=== PATIENT | male | born 1990 | race American Indian/Alaskan Native ===

== ENCOUNTER 2016-12-17 01:15 | Emergency (ER) | payer OTHER ==
[2016-12-17 01:16] VITALS: BMI 26.4
[2016-12-17 01:25] VITALS: BP 125/80; PULSE 85; RESP 16; TEMP 97.8; O2SAT 98
--- NOTE | 2016-12-17 06:20 | C.PDOC ---
History Of Present Illness 26 year old male presents to the ED requesting STD testing and complaint of small abrasion to to penis noted three days ago. He notes one female partner and using protection "most of the time." Patient denies any discharge from wound of urethra and any other complaints at this time. Chief Complaint (Nursing): Male Genitourinary History Per: Patient History/Exam Limitations: no limitations Onset/Duration Of Symptoms: Days Current Symptoms Are (Timing): Still Present Associated Symptoms: denies: Fever, Chills, Nausea, Vomiting, Diarrhea Past Medical History Reviewed: Historical Data, Nursing Documentation, Vital Signs Vital Signs: Last Vital Signs Temp 97.8 F 12/17/16 01:23 Pulse 85 12/17/16 01:23 Resp 16 12/17/16 01:23 BP 125/80 12/17/16 01:23 Pulse Ox 98 12/17/16 06:39 Family History: States: Unknown Family Hx - Social History Hx Tobacco Use: No Hx Alcohol Use: Yes Hx Substance Use: No - Immunization History Hx Tetanus Toxoid Vaccination: No Hx Influenza Vaccination: No Hx Pneumococcal Vaccination: No Review Of Systems Constitutional: Negative for: Fever, Chills Respiratory: Negative for: Cough Gastrointestinal: Negative for: Nausea, Vomiting, Abdominal Pain, Diarrhea Genitourinary: Positive for: Other (penile abrasion ). Negative for: Dysuria, Hematuria, Penile Discharge Physical Exam - Physical Exam Appears: Non-toxic, No Acute Distress Skin: Warm, Dry Head: Normacephalic Eye(s): bilateral: PERRL, EOMI Ear(s): Bilateral: Normal Oral Mucosa: Moist Tongue: Normal Appearing Lips: Normal Appearing Throat: Normal, No Erythema Neck: Normal ROM, Supple Chest: Symmetrical, No Deformity Cardiovascular: Rhythm Regular Respiratory: No Accessory Muscle Use, No Rales, No Rhonchi, No Stridor, No Wheezing Gastrointestinal/Abdominal: Soft, No Tenderness, No Distention, No Guarding, No Rebound Male Genital: Other (punctate abrasion to the shaft of the penis ) Extremity: Normal ROM, No Tenderness ED Course And Treatment O2 Sat by Pulse Oximetry: 98 Disposition - Disposition Referrals: [facility] [Outside] [facility] [Outside] Disposition: HOME/ ROUTINE Disposition Time: 02:10 Condition: GOOD Additional Instructions: Thank you for letting us take care of you today. Your provider was Dr. Munguia. You were treated for penile abrasion. The emergency medical care you received today was directed at your acute symptoms. If you were prescribed any medication, please fill it and take as directed. It may take several days for your symptoms to resolve. Return to the Emergency Department if your symptoms worsen, do not improve, or if you have any other problems. Please contact your doctor or call one of the physicians/clinics you have been referred to that are listed on the Patient Visit Information form that is included in your discharge packet. Bring any paperwork you were given at discharge with you along with any medications you are taking to your follow up visit. Our treatment cannot replace ongoing medical care by a primary care provider (PCP) outside of the emergency department. Thank you for allowing the [facility] team to be part of your care today. You had an STI test: It will take 48 hours for the results. Please call after 1 week if you have not heard back. Follow up in the clinic in 4-5 days for outpatient care. Instructions: Safe Sex (ED) - Clinical Impression Clinical Impression: Abrasion of penis - Scribe Statement The provider has reviewed the documentation as recorded by the Scribe Marlen Landaverde All medical record entries made by the Scribe were at my direction and personally dictated by me. I have reviewed the chart and agree that the record accurately reflects my personal performance of the history, physical exam, medical decision making, and the department course for this patient. I have also personally directed, reviewed, and agree with the discharge instructions and disposition.
== END 2016-12-17 02:27 | disposition home or self-care (01) ==
LOC: C.ER 01:15
DX: S30.812A Abrasion of penis, initial encounter (principal); X58.XXXA Exposure to other specified factors, initial encounter

== ENCOUNTER 2016-12-26 21:09 | Emergency (ER) | payer OTHER ==
[2016-12-26 21:09] VITALS: BMI 26.4
[2016-12-26 21:36] VITALS: BP 125/74; PULSE 78; RESP 18; TEMP 97.7; O2SAT 97
--- NOTE | 2016-12-26 22:36 | C.PDOC ---
History Of Present Illness 26 y/o male presents to ED with complaint of burn to left leg for 2 weeks. Patient states he has been using A&D ointment, but states he feels like it may be infected, prompting visit. Patient otherwise denies fever, chills, new weakness, new numbness, or other associated symptoms. Time Seen by Provider: 12/26/16 22:10 Chief Complaint (Nursing): Burn History Per: Patient History/Exam Limitations: no limitations Injury Occurred (Timing): Days Ago: (14) Severity: Mild Associated Symptoms: denies: Headache, Cough Recent travel outside of the [place]: No Past Medical History Reviewed: Historical Data, Nursing Documentation, Vital Signs Vital Signs: Last Vital Signs Temp 97.7 F 12/26/16 21:32 Pulse 78 12/26/16 21:32 Resp 18 12/26/16 21:32 BP 125/74 12/26/16 21:32 Pulse Ox 97 12/26/16 22:38 - Medical History PMH: No Chronic Diseases Family History: States: Unknown Family Hx - Social History Hx Tobacco Use: No Hx Alcohol Use: Yes Hx Substance Use: No - Immunization History Hx Tetanus Toxoid Vaccination: No Hx Influenza Vaccination: No Hx Pneumococcal Vaccination: No Review Of Systems Except As Marked, All Systems Reviewed And Found Negative. Constitutional: Negative for: Fever, Chills Respiratory: Negative for: Cough Gastrointestinal: Negative for: Nausea, Vomiting Skin: Positive for: Other (burn to left lower leg). Negative for: Rash Neurological: Negative for: Weakness, Numbness Physical Exam - Physical Exam Appears: Non-toxic, No Acute Distress Skin: Warm, Dry Head: Atraumatic, Normacephalic Extremity: Normal ROM, No Tenderness, Capillary Refill (< 2 sec. ), No Deformity , No Swelling, Other (Small, 3.0 cm diameter healing wound to left tibial acevedo, with minimal localized erythema. No fluctuance or drainage. ) Pulses: Left Dorsalis Pedis: Normal, Right Dorsalis Pedis: Normal Neurological/Psych: Oriented x3, Normal Speech, Normal Cognition, Normal Motor, Normal Sensation Gait: Steady ED Course And Treatment O2 Sat by Pulse Oximetry: 97 (RA) Pulse Ox Interpretation: Normal Progress Note: On reassessment, patient is resting comfortably, and is in no acute distress. Advised patient to used antibioitc ointment as directed at home. appropriate wound care instructions given. Patient instructed to follow up with clinic/PMD within 1-2 days. Disposition Counseled Patient/Family Regarding: Diagnosis, Need For Followup, Rx Given - Disposition Referrals: Non [facility] Provider, [Primary Care Provider] - Disposition: HOME/ ROUTINE Disposition Time: 22:34 Condition: GOOD Additional Instructions: Apply antibiotic oint to area Follow up with PMD Returm to ER if worse Forms: General Discharge Instructions - Clinical Impression Clinical Impression: Healing wound - PA / [employer] / Resident Statement MD/DO has reviewed & agrees with the documentation as recorded. - Scribe Statement The provider has reviewed the documentation as recorded by the Asa Briscoe Provider Scribe Attestation: All medical record entries made by the Asa were at my direction and personally dictated by me. I have reviewed the chart and agree that the record accurately reflects my personal performance of the history, physical exam, medical decision making, and the department course for this patient. I have also personally directed, reviewed, and agree with the discharge instructions and disposition.
== END 2016-12-26 22:46 | disposition home or self-care (01) ==
LOC: SUPCPDRO 21:09 → C.ER 21:09
DX: S81.802A Unspecified open wound, left lower leg, initial encounter (principal); X58.XXXA Exposure to other specified factors, initial encounter

== ENCOUNTER 2017-04-02 14:30 | Emergency (ER) | payer OTHER ==
[2017-04-02 14:31] VITALS: BMI 26.4
[2017-04-02 14:40] VITALS: BP 109/70; PULSE 91; RESP 18; TEMP 98.7; O2SAT 99
--- NOTE | 2017-04-02 15:08 | C.PDOC ---
History Of Present Illness 27 y/o male presents to ED with complaints of nasal congestion, productive cough and facial pain for 3 days. Patient states he tried Dayquil with no improvement. Denies fever, sob, chest pain headache, visual changes, n/v or any other complaints at this time. Time Seen by Provider: 04/02/17 14:42 Chief Complaint (Nursing): Cough, Cold, Congestion History Per: Patient History/Exam Limitations: no limitations Onset/Duration Of Symptoms: Days Current Symptoms Are (Timing): Still Present Associated Symptoms: Cough, Nasal Congestion Past Medical History Reviewed: Historical Data, Nursing Documentation, Vital Signs Vital Signs: Last Vital Signs Temp 98.7 F 04/02/17 14:39 Pulse 91 H 04/02/17 14:39 Resp 18 04/02/17 14:39 BP 109/70 04/02/17 14:39 Pulse Ox 99 04/02/17 16:43 Family History: States: Unknown Family Hx - Social History Hx Tobacco Use: No Hx Alcohol Use: Yes Hx Substance Use: No - Immunization History Hx Tetanus Toxoid Vaccination: No Hx Influenza Vaccination: No Hx Pneumococcal Vaccination: No Review Of Systems Except As Marked, All Systems Reviewed And Found Negative. Constitutional: Negative for: Fever, Chills ENT: Positive for: Nose Congestion Cardiovascular: Negative for: Chest Pain Respiratory: Positive for: Cough. Negative for: Shortness of Breath Skin: Negative for: Rash Physical Exam - Physical Exam Appears: Non-toxic, No Acute Distress Skin: Normal Color, Warm Head: Atraumatic, Normacephalic, Tenderness (To ethmoid sinus and Maxillary) Eye(s): bilateral: Normal Inspection, PERRL, EOMI Ear(s): Left: TM Erythema, Right: Normal Nose: Other (nasal congested) Oral Mucosa: Moist Throat: Normal, No Erythema, No Exudate Neck: Normal, Normal ROM, Supple Lymphatic: Normal Exam Chest: Symmetrical Cardiovascular: Rhythm Regular Respiratory: Normal Breath Sounds, No Accessory Muscle Use, No Rales, No Rhonchi , No Wheezing Extremity: Normal ROM Extremity: Bilateral: Atraumatic Neurological/Psych: Oriented x3, Normal Speech ED Course And Treatment O2 Sat by Pulse Oximetry: 99 (RA) Pulse Ox Interpretation: Normal Progress Note: Patient is resting comfortably, tolerating PO, and is afebrile at this time. Clinical signs and symptoms are not suggestive of sepsis, meningitis, UTI, pneumonia, intra-abdominal pathology, or cellulitis. Patient will be discharged home, and instructed to follow up with his/her physician in 1 -2 days without fail. Patient was instructed to return for any worsening symptoms, persistent fever, neck pain, rash, abdominal pain, or vomiting. Reevaluation Time: 15:00 Disposition - Disposition Disposition: HOME/ ROUTINE Disposition Time: 15:11 Condition: STABLE Additional Instructions: Follow up with primary medical doctor in 1-3 days without fail for further evaluation. Take medications as prescribed. Return to the emergency department at any time if symptoms persist or worsen. Prescriptions: Amoxicillin/Clavulanate [Augmentin 875 MG-125 MG] 1 tab PO BID #14 tab Fluticasone Nasal [Flonase] 1 actuation NS DAILY #1 spr Guaifen/Dextromethorphan/PE [Mucinex Fast-Max Congest-Cough] 1 each PO Q6 #20 tablet Instructions: Sinusitis (ED) - Clinical Impression Clinical Impression: Sinusitis - Scribe Statement The provider has reviewed the documentation as recorded by the Dentonibxiomara Vázquez All medical record entries made by the Asa were at my direction and personally dictated by me. I have reviewed the chart and agree that the record accurately reflects my personal performance of the history, physical exam, medical decision making, and the department course for this patient. I have also personally directed, reviewed, and agree with the discharge instructions and disposition.
== END 2017-04-02 15:33 | disposition home or self-care (01) ==
LOC: C.ER 14:30
DX: J32.9 Chronic sinusitis, unspecified (principal); Z72.0 Tobacco use

== ENCOUNTER 2017-09-14 20:44 | Emergency (ER) | payer OTHER ==
[2017-09-14 20:44] VITALS: BMI 26.4
[2017-09-14 21:19] VITALS: TEMP 98.5; O2SAT 96
--- NOTE | 2017-09-14 22:56 | C.PDOC ---
Time Seen by Provider: 09/14/17 22:56 Chief Complaint (Nursing): GI Problem History Per: Patient History/Exam Limitations: no limitations Onset/Duration Of Symptoms: Days Current Symptoms Are (Timing): Still Present Context: Other Severity: Mild Pain Scale Rating Of: 3 Location Of Pain/Discomfort: Diffuse Radiation Of Pain To:: None Quality Of Discomfort: Dull Associated Symptoms: Nausea. denies: Fever, Chills Exacerbating Factors: Cough Alleviating Factors: None Last Bowel Movement: Today Recent travel outside of the [place]: No Additional History Per: Patient Past Medical History Reviewed: Historical Data, Nursing Documentation, Vital Signs Vital Signs: Last Vital Signs Temp 98.5 F 09/14/17 21:17 Pulse 87 09/14/17 21:17 Resp 20 09/14/17 21:17 BP 129/72 09/14/17 21:17 Pulse Ox 96 09/14/17 23:51 Family History: States: No Known Family Hx - Social History Hx Tobacco Use: No Hx Alcohol Use: Yes Hx Substance Use: No - Immunization History Hx Tetanus Toxoid Vaccination: No Hx Influenza Vaccination: No Hx Pneumococcal Vaccination: No Review Of Systems Constitutional: Negative for: Fever, Chills Eyes: Negative for: Redness ENT: Positive for: Nose Congestion, Throat Pain. Negative for: Throat Swelling Cardiovascular: Negative for: Chest Pain Respiratory: Positive for: Cough. Negative for: Shortness of Breath Gastrointestinal: Positive for: Nausea. Negative for: Vomiting Musculoskeletal: Negative for: Back Pain Skin: Negative for: Rash Neurological: Negative for: Weakness Psych: Negative for: Anxiety Physical Exam - Physical Exam Appears: Non-toxic, No Acute Distress Skin: Warm, Dry Head: Normacephalic Eye(s): bilateral: Normal Inspection Nose: Discharge (clear) Oral Mucosa: Moist Tongue: Normal Appearing Throat: No Erythema, No Exudate, No Drooling Neck: Supple Chest: Symmetrical Cardiovascular: Rhythm Regular Respiratory: No Rales, No Rhonchi, No Wheezing Gastrointestinal/Abdominal: Soft, No Tenderness, No Distention Neurological/Psych: Oriented x3 Gait: Steady ED Course And Treatment O2 Sat by Pulse Oximetry: 96 Reevaluation Time: 23:05 Reassessment Condition: Improved Disposition Counseled Patient/Family Regarding: Studies Performed, Diagnosis, Need For Followup, Rx Given - Disposition Referrals: Garcia,Jayson, DO [Staff Provider] - Disposition: HOME/ ROUTINE Disposition Time: 22:56 Condition: FAIR Instructions: Upper Respiratory Infection (ED) Forms: [facility] (Latvian), Work Excuse - Clinical Impression Clinical Impression: Upper respiratory infection
[2017-09-14 23:52] VITALS: BP 118/72; PULSE 81; RESP 18
== END 2017-09-14 23:56 | disposition home or self-care (01) ==
LOC: C.ER 20:44
DX: J06.9 Acute upper respiratory infection, unspecified (principal); F17.210 Nicotine dependence, cigarettes, uncomplicated

== ENCOUNTER 2018-02-10 14:02 | Emergency (ER) | payer OTHER ==
[2018-02-10 14:02] VITALS: BMI 26.4
[2018-02-10 14:26] VITALS: BP 118/73; PULSE 71; RESP 20; TEMP 98.4; O2SAT 98
--- NOTE | 2018-02-10 15:05 | C.PDOC ---
History Of Present Illness <Tianna Zavala - Last Filed: 02/10/18 15:04> <Aracely Oliver - Last Filed: 02/10/18 17:36> 27 y/o male presents to the s/p wound check. Patient was seen here at this ED 8 days ago for a laceration repair of the right knee. He came into ED requesting his stitches be removed. Patient was unsure if it was time for them to be removed. He has no medical complaints. PMD: Jose Friedman (Aracely Oliver) <Tianna Zavala - Last Filed: 02/10/18 15:04> History Per: Patient History/Exam Limitations: no limitations Onset/Duration Of Symptoms: Days Ago (8) Current Symptoms Are (Timing): Better Location Of Injury: Right: Knee Recent travel outside of the [place]: No <Aracely Oliver - Last Filed: 02/10/18 17:36> Time Seen by Provider: 02/10/18 14:38 Chief Complaint (Nursing): Suture/Staple Removal Past Medical History Family History: States: Unknown Family Hx - Social History Hx Tobacco Use: No Hx Alcohol Use: Yes Hx Substance Use: No - Immunization History Hx Tetanus Toxoid Vaccination: Yes Hx Influenza Vaccination: No Hx Pneumococcal Vaccination: No <Tianna Zavala - Last Filed: 02/10/18 15:04> Reviewed: Historical Data, Nursing Documentation, Vital Signs - Medical History PMH: No Chronic Diseases Family History: States: Unknown Family Hx - Social History Hx Tobacco Use: No Hx Alcohol Use: Yes Hx Substance Use: No - Immunization History Hx Tetanus Toxoid Vaccination: Yes Hx Influenza Vaccination: No Hx Pneumococcal Vaccination: No <Aracely Oliver - Last Filed: 02/10/18 17:36> Vital Signs: Last Vital Signs Temp 98.4 F 02/10/18 14:24 Pulse 71 02/10/18 14:24 Resp 20 02/10/18 14:24 BP 118/73 02/10/18 14:24 Pulse Ox 98 02/10/18 15:05 Review Of Systems Except As Marked, All Systems Reviewed And Found Negative. Constitutional: Negative for: Other (has no medical complaints) Skin: Positive for: Other (wound check of laceration on right knee) <Aracely Oliver - Last Filed: 02/10/18 17:36> Physical Exam - Physical Exam Appears: Well, Non-toxic, No Acute Distress, Other (Provider denied suture removal stating healing laceration on right knee was too early.) Skin: Normal Color, Warm, Dry, No Other (no indication of infection) Head: Atraumatic Eye(s): bilateral: Normal Inspection, PERRL, EOMI Neurological/Psych: Oriented x3 <Aracely Oliver - Last Filed: 02/10/18 17:36> ED Course And Treatment O2 Sat by Pulse Oximetry: 98 <Tianna Zavala - Last Filed: 02/10/18 15:04> O2 Sat by Pulse Oximetry: 98 (RA) Pulse Ox Interpretation: Normal <Aracely Oliver - Last Filed: 02/10/18 17:36> Medical Decision Making <Tianna Zavala - Last Filed: 02/10/18 15:04> <Aracely Oliver - Last Filed: 02/10/18 17:36> Medical Decision Making: Time: 14:24 Upon evaluation patient was instructed to return in one week for wound check and possible suture removal. Scribe Attestation: Documented by Maria Del Carmen Melendez acting as a scribe for Tianna Zavala PA-C. MD Scribe Attestation: All medical record entries made by the Scribe were at my direction and personally dictated by me. I have reviewed the chart and agree that the record accurately reflects my personal performance of the history, physical exam, medical decision making, and the department course for this patient. I have also personally directed, reviewed, and agree with the discharge instructions and disposition. (Aracely Oliver) Disposition - Disposition Disposition Time: 15:04 <Tianna Zavala - Last Filed: 02/10/18 15:04> <Aracely Oliver - Last Filed: 02/10/18 17:36> - Disposition Disposition: HOME/ ROUTINE Condition: STABLE Additional Instructions: Return to ED in 1 week for suture removal. Instructions: Wound Care (DC) Forms: [facility] (Mauritanian) - Clinical Impression Clinical Impression: Visit for wound check
== END 2018-02-10 15:09 | disposition home or self-care (01) ==
LOC: C.ER 14:02
DX: S81.011D Laceration without foreign body, right knee, subsequent encounter (principal)